=== PATIENT | female | born 1975 | race Caucasian/White ===

== ENCOUNTER 2020-11-22 07:43 | Outpatient (CLI) | payer BC | END 2020-11-22 07:44 | disposition home or self-care (01) | LOC: CSHCT 07:43 | PROVIDERS: ATTEND Physician Assistant | DX: H90.72 Mixed conductive and sensorineural hearing loss, unilateral, left ear, with unrestricted hearing on the contralateral side (principal); H83.8X2 Other specified diseases of left inner ear | CPT/HCPCS: 70480 ==